=== PATIENT | male | born 1955 | race Caucasian/White ===

== ENCOUNTER 2021-05-01 12:16 | Emergency (ER) | payer MEDICARE ==
[~2021-05-01] VITALS: Ht 170.2 cm; Wt 68.3 kg
[2021-05-01] MEDS ORDERED: alteplase 100MG inj. 100 ML IV ONE (12:25)
--- NOTE | 2021-05-01 12:42 | NUR ---
TELE NEURO CONSULT INITIATED
--- NOTE | 2021-05-01 12:45 | NUR ---
Teleneurologist evaluating patient at this time.
[2021-05-01 12:52] LABS: BASOPHILS % (AUTO) 0.7 % (0-1); EOSINOPHILS # (AUTO) 0.1 X10'3 (0-0.9); EOSINOPHILS % (AUTO) 1.2 % (0-6); HEMATOCRIT 45.9 % (42.0-52.0); HEMOGLOBIN 15.2 g/dl (14.0-17.9); LYMPHOCYTES # (AUTO) 1.8 X10'3 (1.1-4.8); LYMPHOCYTES % (AUTO) 24.9 % (21-51); MEAN CORPUSCULAR HEMOGLOBIN 29.9 PG (27.0-31.0); MEAN CORPUSCULAR HGB CONC 33.1 g/dL (33.0-36.5); MEAN CORPUSCULAR VOLUME 90.2 FL (78-98); MEAN PLATELET VOLUME 7.7 FL (7.4-10.4); MONOCYTES # (AUTO) 0.6 X10'3 (0-0.9); MONOCYTES % (AUTO) 9.1 % (2-12); NEUTROPHILS # (AUTO) 4.6 X10'3 (1.8-7.7); NEUTROPHILS % (AUTO) 64.1 % (42-75); PLATELET COUNT 318 X10'3 (140-440); RED BLOOD COUNT 5.09 X10'6 (4.70-6.10); RED CELL DISTRIBUTION WIDTH 13.8 % (11.5-14.5); WHITE BLOOD COUNT 7.1 X10'3 (4.5-11.0)
[2021-05-01] MEDS ORDERED: iohexol 350MG/ML 100ml bottle IV ONE (13:01)
[2021-05-01 13:06] LABS: PARTIAL THROMBOPLASTIN TIME 34 SECONDS (22-32)
[2021-05-01 13:09] LABS: ALANINE AMINOTRANSFERASE 17 U/L (12-78); ALBUMIN 3.4 G/DL (3.4-5.0); ALBUMIN/GLOBULIN RATIO 0.9 (1.1-1.5); ALKALINE PHOSPHATASE 97 IU/L (46-116); ANION GAP 11 (8-16); ASPARTATE AMINO TRANSFERASE 16 U/L (10-37); BILIRUBIN,TOTAL 0.4 MG/DL (0.1-1.0); BLOOD UREA NITROGEN 13 MG/DL (7-18); BUN/CREATININE RATIO 13.8 (5.4-32.0); CALCIUM 8.4 MG/DL (8.5-10.1); CHLORIDE 105 MMOL/L (99-107); CREATININE 0.94 MG/DL (0.60-1.10); GLUCOSE 99 MG/DL (70-104); POTASSIUM 3.6 MMOL/L (3.5-5.1); SODIUM 140 MMOL/L (135-145); TOTAL CARBON DIOXIDE 23.6 MMOL/L (24-32); TOTAL PROTEIN 7.1 G/DL (6.4-8.2); eGFR 81 ML/MIN
--- NOTE | 2021-05-01 13:09 | NUR ---
Note margothone in [facility] - 05/01/21 at 1317 by TERRANCE Patient to Addendum: 05/01/21 at 1309 by TERRANCE Amendment jimi in [facility] - 05/01/21 at 1317 by TERRANCE Patient to CT- [id number]
--- NOTE | 2021-05-01 13:37 | NUR ---
[facility] report called to [facility] for ER to ER transfer. Report was given to Gina RN lead java j2ee developer in ER. Gina requested COVID swab results via Fax will fax when resulted.
[2021-05-01 13:40] VITALS: BP 150/92
--- NOTE | 2021-05-01 13:50 | NUR ---
Patient departed ER to be transfered to [facility], Dr. Cordova stated that no RN needed during transport.
== END 2021-05-01 14:01 | disposition short-term general hospital (02) ==
LOC: ER 12:16
DX: I63.9 Cerebral infarction, unspecified (principal); Z20.822 Contact with and (suspected) exposure to COVID-19; I72.9 Aneurysm of unspecified site; R53.1 Weakness; R47.81 Slurred speech; R20.0 Anesthesia of skin; F17.200 Nicotine dependence, unspecified, uncomplicated; F15.90 Other stimulant use, unspecified, uncomplicated; Z72.89 Other problems related to lifestyle
CPT/HCPCS: 36415; 70450; 70496; 70498; 71045; 80053; 82948; 85025; 85610; 85730; 86885; 86900; 86901; 87635; 93005; 99291; C9803; Q9967